=== PATIENT | male | born 1945 | race Caucasian/White ===

== ENCOUNTER → 2022-04-24 11:27 | Outpatient (BNVA) | payer MEDICARE, MEDICAID, SELFPAY | PROVIDERS: PCP Physician Assistant; Visit Provider Student in an Organized Health Care Education/Training Program | DX: M79.605 Pain in left leg (principal); M79.604 Pain in right leg | CPT/HCPCS: 36415; 80053; 82784; 84165; 84443; 85025; 85652; 86140; 86334; 99202 ==

== ENCOUNTER 2022-04-24 12:53 | Outpatient (REF) | payer MEDICARE, MEDICAID, SELFPAY ==
[2022-04-24 13:44] LABS: MANUAL DIFF FLAG NO
[2022-04-24 14:00] LABS: Basophils Percent Auto 0.6 % (0-2); Eosinophils Absolute Auto 0.1 X10*3/uL (0.0-0.4); Eosinophils Percent Auto 1.7 % (0-4); Hematocrit 45.6 % (42.0-52.0); Hemoglobin 14.9 g/dl (14.0-18.0); Imm Gran Abs Auto 0.01 X10*3/uL (0.00-0.03); Imm Gran Pct Auto 0.2 % (0.0-0.4); Lymphocytes Absolute Auto 1.9 X10*3/uL (1.2-4.9); Lymphocytes Percent Auto 28.9 % (20-40); Mean Corpuscular HGB Conc 32.7 g/dl (31.0-36.0); Mean Corpuscular Hemoglobin 28.5 pg (27.0-33.0); Mean Corpuscular Volume 87.2 fL (80.0-98.0); Mean Platelet Volume 10.6 fL (9.4-12.4); Monocytes Absolute Auto 0.5 X10*3/uL (0.1-1.2); Neutrophils Absolute Auto 3.9 x10*3/uL (2.0-8.3); Neutrophils Percent Auto 60.6 % (45-73); Platelet Count 321 X10*3/uL (160-400); Red Blood Count 5.23 X10*6/uL (4.60-5.80); Red Cell Distribution Width 13.5 % (11.0-16.0); White Blood Count 6.5 X10*3/uL (4.8-10.8)
[2022-04-24 14:36] LABS: Erythrocyte Sedimentation Rate 3 MM/HR (0-15)
[2022-04-24 14:37] LABS: Alanine Aminotransferase 23 U/L (0-40); Albumin Level 4.3 g/dL (3.5-5.0); Alkaline Phosphatase 95 U/L (39-117); Anion Gap 13 (12-20); Aspartate Amino Transferase 12 U/L (5-37); Bilirubin Total 0.5 mg/dL (0.0-1.0); Blood Urea Nitrogen 17 mg/dL (9-16); C Reactive Protein 0.19 mg/dL (< or = 0.50); Carbon Dioxide 30 mmol/L (22-29); Chloride 102 mmol/L (96-108); Estimated Glomerular Filt Rate > 60; Glucose Random 89 mg/dL (60-115); Potassium 5.1 mmol/L (3.3-5.1); Sodium 140 mmol/L (135-145); Total Protein 6.3 g/dL (6.5-8.0)
[2022-04-24 14:45] LABS: Thyroid Stimulating Hormone 0.77 uIU/mL (0.32-4.0)
[2022-04-26 14:52] LABS: IgA 233 mg/dL (70-320); IgG 572 mg/dL (600-1540); IgM 55 mg/dL (50-300)
[2022-04-27 21:17] LABS: Prot Elec - Alpha1 0.2 g/dL (0.2-0.3); Prot Elec - Alpha2 0.7 g/dL (0.5-0.9); Prot Elec - Beta 1 0.4 g/dL (0.4-0.6); Prot Elec - Beta 2 0.3 g/dL (0.2-0.5); Prot Elec - Gamma 0.5 g/dL (0.8-1.7); Prot Elec - Total Protein 6.1 g/dL (6.1-8.1)
== END 2022-04-24 12:54 | disposition home or self-care (01) ==
LOC: HO.10HDL 12:53
PROVIDERS: PCP Internal Medicine; Visit Provider Student in an Organized Health Care Education/Training Program
DX: Z13.89 Encounter for screening for other disorder (principal)
CPT/HCPCS: 36415; 80053; 82784; 84165; 84443; 85025; 85652; 86140; 86334

== ENCOUNTER 2022-04-25 15:29 | Outpatient (REF) | payer MEDICARE, MEDICAID, SELFPAY ==
--- NOTE | ~2022-04-25 | XR_ITS ---
EXAMINATION: BILATERAL TIBIA AND FIBULA. CLINICAL INFORMATION: Pain left leg. COMPARISON: None TECHNIQUE: 2 views each lower leg. FINDINGS: RIGHT TIBIA AND FIBULA: There is no visible acute fracture, dislocation or bony abnormality. The soft tissues are normal. Partially visualized ankle mortise and subtalar joints appears unremarkable. The soft tissues are normal. LEFT TIBIA AND FIBULA: No visible acute fracture, dislocation or bony abnormality. The soft tissues are normal. The ankle mortise and subtalar joints are normal. XR/XR tibia fibula LT 2V IMPRESSION: Unremarkable bilateral tibia and fibula.
--- NOTE | ~2022-04-25 | XR_ITS ---
EXAMINATION: BILATERAL TIBIA AND FIBULA. CLINICAL INFORMATION: Pain left leg. COMPARISON: None TECHNIQUE: 2 views each lower leg. FINDINGS: RIGHT TIBIA AND FIBULA: There is no visible acute fracture, dislocation or bony abnormality. The soft tissues are normal. Partially visualized ankle mortise and subtalar joints appears unremarkable. The soft tissues are normal. LEFT TIBIA AND FIBULA: No visible acute fracture, dislocation or bony abnormality. The soft tissues are normal. The ankle mortise and subtalar joints are normal. XR/XR tibia fibula RT 2V IMPRESSION: Unremarkable bilateral tibia and fibula.
== END 2022-04-25 15:30 | disposition home or self-care (01) ==
LOC: HO.XRAY 15:29
PROVIDERS: PCP Internal Medicine; Visit Provider Student in an Organized Health Care Education/Training Program
DX: M79.605 Pain in left leg (principal); M79.604 Pain in right leg
CPT/HCPCS: 73590

== ENCOUNTER 2022-05-16 14:51 | Outpatient (REF) | payer MEDICARE, MEDICAID, SELFPAY ==
--- NOTE | ~2022-05-16 | MR_ITS ---
EXAMINATION: MRI OF THE RIGHT LOWER EXTREMITY WITHOUT AND WITH CONTRAST CLINICAL INFORMATION: Pain right leg. COMPARISON: X-ray of the tibia and fibula April 2022. TECHNIQUE: MRI of the right lower leg was performed without and with contrast. Contrast dose 8.5 mL of Gadavist given intravenously. FINDINGS: SUBCUTANEOUS SOFT TISSUES: Minimal scattered patchy edema noted throughout the lower leg. No abnormal enhancement. MUSCLES/TENDONS: There are several areas of localized lipomatous signal within the soleus muscle, medial head of gastrocnemius, and peroneal longus muscle. In the proximal peroneal muscle this extends over 7.8 cm in length and measures up to 1.8 cm transverse and 1.2 cm AP. The muscle does not appear expanded. There is no abnormal enhancement. Soleus muscle: There are several areas of lipomatous signal in the muscle including proximally where there are two adjacent areas of fat signal both measuring approximately 3 cm transverse and up to 1.3 cm AP. This extends over approximately 4 cm in length. Additional scattered smaller areas of lipomatous change noted posteriorly largest measures 14 mm transverse, 17 mm AP and 4.8 cm craniocaudal. These do not enhance. There is some subtle increased T2 signal in the proximal medial soleus adjacent to the area of lipomatous change compatible with mild muscle strain or contusion. This does not enhance. There are two adjacent foci of lipomatous signal within the medial head of the gastrocnemius each measuring approximately 10 mm transverse. The visualized bone appears normal. ADDITIONAL FINDINGS: Left lower leg: Limited evaluation of the left lower extremity on the coronal series. There is a similar-appearing area of lipomatous signal within the medial head of the gastrocnemius extending over 7.6 cm in length and 17 mm transverse. No enhancement. The visualized bone is normal. MR/MR lower leg RT wo/w con IMPRESSION: 1. Multiple areas of lipomatous signal noted throughout the muscles of the right lower leg. The most prominent areas are within the medial head of the gastrocnemius and peroneal longus muscle. The appearance is most consistent with areas of intramuscular lipomas versus localized atrophy and fatty infiltration of uncertain etiology. Likelihood of malignancy would be extremely rare given its appearance and multifocal distribution in the right leg as well as in the left lower leg (see below). 2. There is a minimal amount of edema in the proximal medial soleus compatible with mild muscle strain or contusion. 3. Limited evaluation of the left lower leg on the coronal series demonstrates similar findings within the medial head of the gastrocnemius. 4. Minimal edema in the subcutaneous soft tissues of the lower leg. No abnormal enhancement. 5. No evidence for stress fracture or stress reaction.
== END 2022-05-16 14:52 | disposition home or self-care (01) ==
LOC: HO.MRI 14:51
PROVIDERS: Visit Provider Student in an Organized Health Care Education/Training Program
DX: M79.604 Pain in right leg (principal)
CPT/HCPCS: 73720; A9585

== ENCOUNTER → 2022-05-18 14:37 | Outpatient (BNVA) | payer MEDICARE, MEDICAID, SELFPAY | PROVIDERS: PCP Internal Medicine; Visit Provider Student in an Organized Health Care Education/Training Program | DX: D17.9 Benign lipomatous neoplasm, unspecified (principal) | CPT/HCPCS: 99212 ==

== ENCOUNTER → 2022-05-28 14:15 | Outpatient (BNVA) | payer MEDICARE, MEDICAID, SELFPAY | PROVIDERS: PCP Internal Medicine; Visit Provider Surgery | DX: D17.9 Benign lipomatous neoplasm, unspecified (principal); M79.604 Pain in right leg; M79.605 Pain in left leg; I42.0 Dilated cardiomyopathy | CPT/HCPCS: 99202 ==

== ENCOUNTER → 2022-08-03 14:02 | Outpatient (BNVA) | payer MEDICARE, MEDICAID, SELFPAY | PROVIDERS: PCP Internal Medicine; Visit Provider Student in an Organized Health Care Education/Training Program | DX: M62.838 Other muscle spasm (principal) | CPT/HCPCS: 99212 ==